=== PATIENT | female | born 1950 | race Caucasian/White ===

== ENCOUNTER → 2016-05-31 15:57 | Outpatient (CLI) | payer MEDICARE, BC | END | disposition home or self-care (01) | LOC: D.LABREF 15:57 | DX: M17.11 Unilateral primary osteoarthritis, right knee (principal); Z11.8 Encounter for screening for other infectious and parasitic diseases ==

== ENCOUNTER → 2017-01-30 14:12 | Outpatient (CLI) | payer MEDICARE, BC | END | disposition home or self-care (01) | LOC: D.MAMMO 11:00 | DX: Z12.31 Encounter for screening mammogram for malignant neoplasm of breast (principal) ==

== ENCOUNTER → 2017-04-25 17:30 | Outpatient (CLI) | payer MEDICARE, BC | END | disposition home or self-care (01) | LOC: D.MAMMO 03-07 13:30 | DX: R92.8 Other abnormal and inconclusive findings on diagnostic imaging of breast (principal) ==

== ENCOUNTER 2017-10-12 15:01 | Emergency (ER) | payer MEDICARE, BC ==
[~2017-10-12] VITALS: Ht 154.9 cm; Wt 109.1 kg
[2017-10-12 15:03] VITALS: Ht 154.9 cm; Wt 109.1 kg
[2017-10-12] MEDS ORDERED: COZAAR50 MG PO (15:23)
[2017-10-12] MEDS ORDERED: METOPROLOL TAR100 M1 PO (15:23)
[2017-10-12] MEDS ORDERED: GLIPIZIDE10 MG PO (15:23)
[2017-10-12] MEDS ORDERED: TIROSINT125 MCG PO (15:24)
[2017-10-12] MEDS ORDERED: OMEPRAZOLE20 M1 PO (15:24)
[2017-10-12] MEDS ORDERED: NEURONTIN 300300 MG PO (15:24)
[2017-10-12] MEDS ORDERED: PRAVACHOL40 MG PO (15:24)
[2017-10-12] MEDS ORDERED: CELEXA40 MG PO (15:25)
[2017-10-12] MEDS ORDERED: PLAVIX75 MG PO (15:25)
[2017-10-12] MEDS ORDERED: VISTARIL25 MG PO (15:26)
[2017-10-12] MEDS ORDERED: ELAVIL25 MG PO (15:26)
[2017-10-12] MEDS ORDERED: FERROUS SULFAT325 MG PO (15:27)
[2017-10-12] MEDS ORDERED: NOVOLIN R100 U/ML (15:29)
[2017-10-12] MEDS ORDERED: LANTUS INSULIN10 ML SQ (15:29)
[2017-10-12] MEDS ORDERED: VENTOLIN HFA18 GM INH (15:30)
[2017-10-12] MEDS ORDERED: TORADOL10 MG PO (16:56)
[2017-10-12 17:24] VITALS: BP 116/64
== END 2017-10-12 17:26 | disposition home or self-care (01) ==
LOC: D.ER 15:01
DX: M17.11 Unilateral primary osteoarthritis, right knee (principal); H54.7 Unspecified visual loss; E11.9 Type 2 diabetes mellitus without complications; I10 Essential (primary) hypertension; K21.9 Gastro-esophageal reflux disease without esophagitis; F17.200 Nicotine dependence, unspecified, uncomplicated